=== PATIENT | female | born 1950 | race Two or more races ===

== ENCOUNTER 2017-06-24 09:13 | Emergency (ER) | payer OTHER ==
[~2017-06-24] VITALS: Ht 167.6 cm; Wt 81.6 kg
--- NOTE | 2017-06-24 09:20 | NUR ---
[id number], BIB FAMILY TO ER C/O SWELLING AROUND EYES AND ITCHING TO SCALP X 3 DAYS FOR POSSIBLE ALLERGIC REACTION TO UNKNOWN ETIOLOGY. SKIN IS WARM AND DRY. SPEAKS IN FULL SENTENCES. AWAITING MD FOR EVAL.
[2017-06-24] MEDS ORDERED: diphenhydrAMINE HCL 25 MG CAPSULE ONE (10:00)
[2017-06-24] MEDS ORDERED: diphenhydrAMINE HCL 25 MG CAPSULE PO ONE (10:00)
[2017-06-24 10:13] VITALS: BP 135/95
== END 2017-06-24 10:13 | disposition home or self-care (01) ==
LOC: ER 09:18
DX: L25.9 Unspecified contact dermatitis, unspecified cause (principal); E11.9 Type 2 diabetes mellitus without complications; I10 Essential (primary) hypertension; Z91.018 Allergy to other foods
CPT/HCPCS: 99282; A4606; Q0163; Z7610